=== PATIENT | male | born 1980 | race Caucasian/White ===

== ENCOUNTER 2020-05-05 23:56 | Emergency (ER) | payer MEDICAID ==
[~2020-05-05] VITALS: Ht 188 cm; Wt 137.0 kg
[2020-05-06] MEDS ORDERED: MAGNESIUM/ALUMINUM HYDROXIDE/SIMETHICONE 30ML UDC PO ONE (02:30)
[2020-05-06] MEDS ORDERED: VISCOUS LIDOCAINE 2% 15 ML UDC PO ONE (02:30)
[2020-05-06] MEDS ORDERED: ASPIRIN 81MG TABLET PO ONE (02:30)
[2020-05-06 02:49] LABS: CHLORIDE 103 mEq/L (98-107)
[2020-05-06 02:50] LABS: BASOPHILS % 0.7 % (0.0-2.0); EOSINOPHILS % 2.1 % (0.0-5.0); HEMATOCRIT. 46.2 % (42.0-52.0); HEMOGLOBIN. 15.9 g/dL (14.0-18.0); LYMPHOCYTES % 28.2 % (20.0-50.0); MEAN CORPUSCULAR HEMOGLOBIN 31.5 pg (28.0-32.0); MEAN CORPUSCULAR VOLUME 91.5 fL (80.0-94.0); MEAN PLATELET VOLUME 9.5 fl (7.4-10.4); MONOCYTES % 6.1 % (2.0-8.0); NEUTROPHILS % 62.9 % (40.0-76.0); PLATELET 171 x1000/uL (130-400); RED BLOOD CELL COUNT 5.05 mill/uL (4.7-6.1); RED CELL DISTRIBUTION WIDTH 12.2 % (11.6-14.6)
[2020-05-06 03:47] VITALS: BP 157/79
== END 2020-05-06 03:48 | disposition home or self-care (01) ==
LOC: ER 23:56
DX: R06.02 Shortness of breath (principal); R07.89 Other chest pain; R06.00 Dyspnea, unspecified
CPT/HCPCS: 36415; 71045; 80053; 83880; 84484; 85025; 93005; 99285